=== PATIENT | male | born 1990 | race Caucasian/White ===

== ENCOUNTER 2024-04-15 08:30 | Outpatient (RCR) | payer MEDICAID, SELFPAY ==
--- NOTE | 2024-03-30 09:16 | PT.ODAYNRPT ---
PT Outpatient Daily Note OP Daily Note Outpatient Physical Therapy Treatment Date: 03/30/24 Visit Reasons: right knee fracture Subjective: Pt reports R knee is is hurting more than usual. Pt shared that on he walked with cane for a few hours and knee did well once he got home. Friday pt was at his grandmothers house where on of her dogs ran into his leg while he was going up the stairs causing his R knee to hyperextend. Pt said it has been painful and swelled up bad the same day and the day after, pt was unable to put weight on it returned to using crutches. Objective: Please see flow sheet for ther ex list. Assessment: Regressed intervention to accommodate reported pain. Plan: Assess response to treatment. Length of Time (minutes) of Treatment: 30 Minutes Procedure Charges Therapeutic Exercise 30 minutes: Yes
--- NOTE | 2024-04-01 09:31 | PT.ODAYNRPT ---
PT Outpatient Daily Note OP Daily Note Outpatient Physical Therapy Treatment Date: 04/01/24 Visit Reasons: right knee fracture Subjective: Pt reports R knee is slowly doing better since incident where dog ran into his knee. Pt using crutches to ambulate and c/o pain with swing phase and WB on R LE. Objective: Please see flow sheet for ther ex list. Assessment: Pain response to interventions delaying progression of interventions. Plan: Continue with POc. Length of Time (minutes) of Treatment: 30 Minutes Procedure Charges Therapeutic Exercise 30 minutes: Yes
--- NOTE | 2024-04-06 10:40 | PT.ODAYNRPT ---
PT Outpatient Daily Note OP Daily Note Outpatient Physical Therapy Treatment Date: 04/06/24 Visit Reasons: right knee fracture Subjective: Pt reports R knee is doing ok, feels progress is slow continues to use crutches. Objective: Please see flow sheet for ther ex list. Assessment: Pt tolerated forward lunge exercise with WBAT on step. Plan: Continue with pOC. Length of Time (minutes) of Treatment: 30 Minutes Procedure Charges Therapeutic Exercise 30 minutes: Yes
--- NOTE | 2024-04-13 10:39 | PT.ODS1RPT ---
PT OP Progress/Discharge Note Date of Service: 04/13/24 Progress Note/DC Note Progress Note/Discharge Note: Progress Note Patient Information Visit Reasons: right knee fracture Medical Diagnosis: M25.561 Treatment Dx #1: Right Knee Pain Treatment Dx #2: Right Knee Mobility Deficits Service Continue Service or Discharge: Continue Service Certification Date Certification Dates: 04/13/24 to 07/14/24 Status Subjective: Pt's knee is feeling a little better. Pt has been able to start walking with one crutch. Pt still has limitation with prolonged walking, standing, squatting, kneeling and stairs. Pt notice his knee is getting better each week and has been able to load more weight on the knee with activities. Pt will like to continue physical therapy until his surgical date (May 2024). Objective: Right Knee AROM: 0 deg to 120 deg Right Knee MMTs: grossly 3/5 Right Hip MMTs: grossly 3/5 SLS: 2 sec Active SLR: 60 deg Assessment: Pt is slowly improving with knee ROM and strength allowing him to be able to start walking, standing, and perform chores with less support. Pt encouraged to continue HEP at home to help speep progress. Pt gave verbal consent and understanding. Pt has not met set goals and will continue to benefit from physical therapy; thank you for your referrals. Plan: Continue with PT/POC and add 12 sessions (2 x wk for 6 wks) Procedure Charges Therapeutic Exercise 30 minutes: Yes
--- NOTE | 2024-04-15 09:02 | PT.ODAYNRPT ---
PT Outpatient Daily Note OP Daily Note Outpatient Physical Therapy Treatment Date: 04/15/24 Visit Reasons: right knee fracture Subjective: Pt reports R knee is doing better, is now using single crutch. Pt notices it is getting easier to get in and out of the car. Objective: Please see flow sheet for ther ex list. Assessment: Pt ambulating in clinic with increase stance phase compared to previous session and decrease c/o pain indicating progress. Plan: Continue with POC. Length of Time (minutes) of Treatment: 30 Minutes Procedure Charges Therapeutic Exercise 30 minutes: Yes
== END 2024-04-24 23:59 | disposition home or self-care (01) ==
LOC: CPTX 08:30
PROVIDERS: PCP Orthopaedic Surgery Orthopaedic Trauma; Referring Provider Orthopaedic Surgery Orthopaedic Trauma; Visit Provider Orthopaedic Surgery Orthopaedic Trauma
DX: M25.561 Pain in right knee (principal); R26.2 Difficulty in walking, not elsewhere classified
CPT/HCPCS: 97110

== ENCOUNTER 2024-04-28 09:33 | Outpatient (RCR) | payer MEDICAID, SELFPAY ==
--- NOTE | 2024-04-28 10:58 | PTNOTE_ITS ---
PT Outpatient Daily Note OP Daily Note Outpatient Physical Therapy Treatment Date: 04/28/24 Visit Reasons: Right knee fracture Subjective: Pt's knee has been stiff and ache more without consistent PT. Pt feels better and will like to resume physical therapy. Pt went to [place] and was able to get on all the ride which cause some of his knee ache Objective: Please see flow chart for list of ther ex performed Assessment: continues to progress with closed chain exercises. Pt able to WB more on the right LE in stance and with all standing exercises Plan: Continue with PT Length of Time (minutes) of Treatment: 30 Minutes Procedure Charges Therapeutic Exercise 30 minutes: Yes
== END 2024-05-25 23:59 | disposition home or self-care (01) ==
LOC: CPTX 09:33
PROVIDERS: PCP Orthopaedic Surgery Orthopaedic Trauma; Referring Provider Orthopaedic Surgery Orthopaedic Trauma; Visit Provider Orthopaedic Surgery Orthopaedic Trauma
DX: M25.561 Pain in right knee (principal); R26.2 Difficulty in walking, not elsewhere classified
CPT/HCPCS: 97110

== ENCOUNTER 2025-02-22 10:30 | Outpatient (RCR) | payer MEDICAID, SELFPAY ==
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
--- NOTE | 2025-02-08 09:54 | PT.ODAYNRPT ---
PT Outpatient Daily Note OP Daily Note Outpatient Physical Therapy Treatment Date: 02/08/25 Visit Reasons: right knee pain Subjective: Pt c/o of Rt knee pain, explains pain increases with knee flexion. Presents with antalgic gait. Objective: See F/S for therex performed Assessment: Tolerated therex well with no increase in Rt knee pain; performed best with cues to keep within pain free ROM during exercises. Rest breaks required due to muscle fatigue. Plan: Continue with POC Length of Time (minutes) of Treatment: 30 Minutes Procedure Charges Therapeutic Exercise 30 minutes: Yes
--- NOTE | 2025-02-15 10:46 | PT.ODAYNRPT ---
PT Outpatient Daily Note OP Daily Note Outpatient Physical Therapy Treatment Date: 02/15/25 Visit Reasons: right knee pain Subjective: Pt reports minimal pain to Rt knee and states he is noticing an improvement with his quad strength since his last visit. Objective: See F/S for therex performed Assessment: Improved tolerance with therex. Demo'd improvement with quad strength, increased reps by 5 with SAQ's while maintaining good mechanics and control. Increased knee flexion ROM with SB rollout exercise w/ strap to assist. Plan: Continue with POC Length of Time (minutes) of Treatment: 30 Minutes Procedure Charges Therapeutic Exercise 30 minutes: Yes
--- NOTE | 2025-02-17 09:58 | PT.ODAYNRPT ---
PT Outpatient Daily Note OP Daily Note Outpatient Physical Therapy Treatment Date: 02/17/25 Visit Reasons: right knee pain Subjective: Pt c/o of minimal pain to Rt knee which increases with bending and extending the knee Objective: See F/S for therex performed Assessment: Progressed to 5 second holds with SAQ exercise; improvement in control and mechanics. Good tolerance with standing knee extension w/ ball; appropriate fatigue w/ no corrective cues required. Plan: Continue with POC Length of Time (minutes) of Treatment: 30 Minutes Procedure Charges Therapeutic Exercise 30 minutes: Yes
--- NOTE | 2025-02-22 12:49 | PT.ODAYNRPT ---
PT Outpatient Daily Note OP Daily Note Outpatient Physical Therapy Treatment Date: 02/22/25 Visit Reasons: right knee pain Subjective: Pt reports no changes to Rt knee, c/o minimal pain. Objective: See F/S for therex performed Assessment: Min to moderate Rt knee pain with therex; tolerance improves with deep breaths and decreasing knee flexion ROM. Improved mechanics with glute bridges; required less corrective cues. Plan: Continue with POC Length of Time (minutes) of Treatment: 30 Minutes Procedure Charges Therapeutic Exercise 30 minutes: Yes
== END 2025-02-22 23:59 | disposition home or self-care (01) ==
LOC: CPTX 10:30
PROVIDERS: PCP Orthopaedic Surgery Orthopaedic Trauma; Referring Provider Orthopaedic Surgery Orthopaedic Trauma; Visit Provider Orthopaedic Surgery Orthopaedic Trauma
DX: M25.561 Pain in right knee (principal); S83.241D Other tear of medial meniscus, current injury, right knee, subsequent encounter; V89.2XXD Person injured in unspecified motor-vehicle accident, traffic, subsequent encounter
CPT/HCPCS: 97110; 97162

== ENCOUNTER 2025-03-16 09:00 | Outpatient (RCR) | payer MEDICAID, SELFPAY ==
--- NOTE | 2025-02-24 10:14 | PT.ODAYNRPT ---
PT Outpatient Daily Note OP Daily Note Outpatient Physical Therapy Treatment Date: 02/24/25 Visit Reasons: right knee pain Subjective: Pt c/o minimal Rt knee pain. Objective: See F/S for therex Assessment: Improved tolerance to therex and knee flexion with performing SB knee flexion rollout with strap exercise first. Progressed resistance band with clamshells and glute bridge exercises. Plan: Continue with POC Length of Time (minutes) of Treatment: 30 Minutes Procedure Charges Therapeutic Exercise 30 minutes: Yes
--- NOTE | 2025-03-01 10:07 | PT.ODAYNRPT ---
PT Outpatient Daily Note OP Daily Note Outpatient Physical Therapy Treatment Date: 03/01/25 Visit Reasons: right knee pain Subjective: Continued pain and swelling and difficulty lifting the R LE Objective: See F/S for therex TENS R anterior knee x7' Assessment: Significant pain, crepitus and weakness of R knee that limits strength and WB tolerance Plan: Continue per POc Length of Time (minutes) of Treatment: 30 Minutes Procedure Charges Therapeutic Exercise 30 minutes: Yes
--- NOTE | 2025-03-03 10:45 | PT.ODAYNRPT ---
PT Outpatient Daily Note OP Daily Note Outpatient Physical Therapy Treatment Date: 03/03/25 Visit Reasons: right knee pain Subjective: Continued pain and swelling and difficulty lifting the R LE Objective: See F/S for therex TENS R anterior knee x7' Assessment: Significant pain, crepitus and weakness of R knee that limits strength and WB tolerance Plan: Continue per POC Length of Time (minutes) of Treatment: 30 Minutes Procedure Charges Therapeutic Exercise 30 minutes: Yes
--- NOTE | 2025-03-09 13:17 | PT.ODAYNRPT ---
PT Outpatient Daily Note OP Daily Note Outpatient Physical Therapy Treatment Date: 03/09/25 Visit Reasons: right knee pain Subjective: Continued pain and swelling and difficulty lifting the R LE Objective: See F/S for therex Assessment: Pt has difficulty with SLR due to significant pain, crepitus and weakness of R knee that limits strength and WB tolerance Plan: Continue per POC Length of Time (minutes) of Treatment: 30 Minutes Procedure Charges Therapeutic Exercise 30 minutes: Yes
--- NOTE | 2025-03-11 15:04 | PTNOTE_ITS ---
PT Outpatient Daily Note OP Daily Note Outpatient Physical Therapy Treatment Date: 03/11/25 Visit Reasons: right knee pain Subjective: Pt reports he continues to have pain with bending the knee and grinding. Objective: Please see flow sheet for ther ex list. 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 Plan: Continue with pOC. Length of Time (minutes) of Treatment: 30 Minutes Procedure Charges Therapeutic Exercise 30 minutes: Yes
--- NOTE | 2025-03-16 09:44 | PT.ODAYNRPT ---
PT Outpatient Daily Note OP Daily Note Outpatient Physical Therapy Treatment Date: 03/16/25 Visit Reasons: right knee pain Subjective: Pt reports knee is more swollen and painful today, does not recall doing anything different. Pt has follow up with surgeon on FridayMarch 21. Objective: Please see flow sheet for ther ex list. Assessment: Pt presents in clinic with increase LE swelling on R LE and c/o high pain. Modified interventions to accommodate pain, cold pack applied at end of session. Plan: Continue with POC. Length of Time (minutes) of Treatment: 30 Minutes Procedure Charges Therapeutic Exercise 30 minutes: Yes
--- NOTE | 2025-03-22 17:36 | PT.ODS1RPT ---
PT OP Progress/Discharge Note Date of Service: 03/22/25 Progress Note/DC Note Progress Note/Discharge Note: DC Note Patient Information Visit Reasons: right knee pain Service Continue Service or Discharge: Discharge Discharge Date: 03/22/25 Status Assessment: Pt attended the initial evaluation and 10 Rx visits and then went back to surgeon who found a problem with the knee requiring surgery. We will need to D/C this chart. Plan: D/C
== END 2025-03-25 23:59 | disposition home or self-care (01) ==
LOC: CPTX 09:00
PROVIDERS: PCP Orthopaedic Surgery Orthopaedic Trauma; Referring Provider Orthopaedic Surgery Orthopaedic Trauma; Visit Provider Orthopaedic Surgery Orthopaedic Trauma
DX: M25.561 Pain in right knee (principal); S83.241D Other tear of medial meniscus, current injury, right knee, subsequent encounter; V89.2XXD Person injured in unspecified motor-vehicle accident, traffic, subsequent encounter
CPT/HCPCS: 97110